=== PATIENT | female | born 2000 | race Caucasian/White ===

== ENCOUNTER 2023-08-03 08:17 | Emergency (ER) | payer BC, SELFPAY ==
[2023-08-03 08:18] VITALS: BP 127/76; PULSE 120; RESP 20; TEMP 36.2; O2SAT 100
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
--- NOTE | 2023-08-03 09:21 | PC.NURSE ---
pt had large BM and reports she feels better and does not want labs or CT. All risks explained to pt and she voices understanding.
[2023-08-03 09:22] VITALS: BP 116/70; PULSE 78; RESP 16; TEMP 36.6; O2SAT 100
== END 2023-08-03 09:30 | disposition left against medical advice (07) ==
LOC: ANHED 09:25
PROVIDERS: Emergency Provider Emergency Medicine
DX: K59.00 Constipation, unspecified (principal)
CPT/HCPCS: 99281

== ENCOUNTER 2024-12-29 08:46 | Outpatient (CLI) | payer BC, SELFPAY ==
--- NOTE | ~2024-12-29 | US_ITS ---
Pelvic ultrasound. Clinical History: Pelvic pain Technique: Realtime transabdominal and transvaginal scanning of the pelvis was performed. Color flow Doppler and Doppler spectral analysis were performed. Findings: The uterus is retroverted.. The endometrial stripe has a thickness of 9 mm. No focal mass is identified. The right ovary measures 4.5 x 2.1 x 2.9 cm. No significant right ovarian or adnexal mass is seen. The left ovary measures 3.1 x 2.0 x 2.1 cm. No significant left ovarian or adnexal mass is seen. There is small amount of free fluid in the pelvis. Impression: Small amount of free fluid, otherwise unremarkable exam. Reviewed, dictated and finalized at location M. Impression: Small amount of free fluid, otherwise unremarkable exam.
--- NOTE | ~2024-12-29 | US_ITS ---
PROCEDURE: US breast RT limited INDICATION: 24-year old female; palpable lump right breast for 1 month. COMPARISON: None TECHNIQUE: Targeted ultrasound of the palpable lump in the inferior right breast was completed. FINDINGS: There is a 1.89 x 1.27 x 0.76 cm irregular shaped hypoechoic mass with internal vascularity at 6:00 l ocation 5 cm from the nipple in the RIGHT breast that correlates to the palpable lump. IMPRESSION: Suspicious 1.9 cm irregular marginated hypoechoic mass at 6:00 location correlates to the palpable perez mp. RECOMMENDATION: Ultrasound-guided core needle biopsy of right breast mass at 6:00 location. The findings and recommendations were discussed with the patient and breast clinic referral was made prior to leaving the department. BI-RADS 4, SUSPICIOUS Reviewed, dictated and finalized at location B. IMPRESSION: Suspicious 1.9 cm irregular marginated hypoechoic mass at 6:00 location correla reynaldo to the palpable lump. RECOMMENDATION: Ultrasound-guided core needle biopsy of right breast mass at 6:00 location. The findings and recommendations were discussed with the patient and breast cli suad referral was made prior to leaving the department. BI-RADS 4, SUSPICIOUS
== END 2024-12-29 08:47 | disposition home or self-care (01) ==
PROVIDERS: PCP Nurse Practitioner Family; Visit Provider Nurse Practitioner Family
DX: R10.2 Pelvic and perineal pain (principal); R92.8 Other abnormal and inconclusive findings on diagnostic imaging of breast
CPT/HCPCS: 76642; 76830; 76856

== ENCOUNTER 2025-01-24 19:52 | Emergency (ER) | payer BC, SELFPAY ==
--- NOTE | ~2025-01-24 | XR_ITS ---
EXAM: XR wrist LT min 3V DATE: 01/24/2025 20:13 HISTORY: pain; radial aspect and thumb base . COMPARISON: None available. FINDINGS: Normal mineralization. No fracture or dislocation. No lytic or blastic lesion. Joint space s are maintained. No erosion or periosteal change. Soft tissues within normal limits. IMPRESSION: No acute osseous finding in the left wrist. Reviewed, dictated and finalized at location K.
--- NOTE | ~2025-01-24 | XR_ITS ---
EXAM: XR ankle LT min 3V DATE: 01/24/2025 20:13 HISTORY: pain medial aspect and posterior . COMPARISON: None available. FINDINGS: Normal mineralization. No fracture. Slight anterior displacement of the talar dome relativ e to the tibial plafond. No lytic or blastic lesion. Joint spaces are maintained. No erosion or perio steal change. Soft tissues within normal limits. IMPRESSION: No fracture nor left ankle. Anterior displacement of the talus relative to the tibial vince fond, may represent artifact from projection, or acute versus chronic mild subluxation. Reviewed, dictated and finalized at location K. IMPRESSION: No fracture nor left ankle. Anterior displacement of the talus rela tive to the tibial plafond, may represent artifact from projection, or acute ve rsus chronic mild subluxation.
[2025-01-24 19:57] VITALS: BP 108/73; PULSE 90; RESP 18; TEMP 36.9; O2SAT 100
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
[2025-01-24] MEDS: HYDROcodone/acetaminophen (*CRX) 5-325 MG TABLET 1 TAB PO (20:14)
[2025-01-24 20:31] VITALS: BP 112/65; PULSE 80; RESP 16; O2SAT 100
[2025-01-24 21:48] VITALS: BP 109/60; PULSE 73; RESP 18; TEMP 37.1; O2SAT 100
== END 2025-01-24 21:26 | disposition home or self-care (01) ==
PROVIDERS: Emergency Provider Student in an Organized Health Care Education/Training Program
DX: M25.532 Pain in left wrist (principal); M25.572 Pain in left ankle and joints of left foot; V18.0XXA Pedal cycle driver injured in noncollision transport accident in nontraffic accident, initial encounter
CPT/HCPCS: 73110; 73610; 99284; A9270

== ENCOUNTER 2025-01-25 07:00 | Outpatient (CLI) | payer BC, SELFPAY ==
--- NOTE | ~2025-01-25 | US_ITS ---
EXAMINATION: US breast BI complete HISTORY: Palpable abnormality within the right breast High resolution limited bilateral breast ultrasound was performed. COMPARISON: 12/29/2024 FINDINGS: ULTRASOUND: Redemonstration of a focus of mixed echogenicity at the 6:00 position of the right breast approximate ly 5 cm from the nipple with faint vascularity for which biopsy is recommended. The remainder of the sonographic evaluation of the bilateral breasts demonstrate benign fibroglandula r elements without a cystic or solid lesion of concern. IMPRESSION: Redemonstration of the palpable abnormality at the 6:00 position of the right breast. BI-RADS category 4, suspicious findings. Biopsy is planned, immediately to follow. Reviewed, dictated and finalized at location A.
--- NOTE | ~2025-01-25 | US_ITS ---
EXAMINATION: US breast biopsy RT w image DATE: 01/25/2025 10:51 INDICATION 24-year-old woman with a palpable abnormality in the right breast presents for ultrasound- guided biopsy. TECHNIQUE: The procedure including the risks, benefits, and alternatives was discussed with the patie nt and her . The patient and her understood the risks and agreed to proceed. The skin overlying the 6:00 position of the right breast was prepped and draped in usual sterile fash ion. Anesthetic was administered with 1% lidocaine subcutaneously. Limited ultrasound examination of the right breast was then again performed. At the 6:00 position of the right breast approximately 5 cm from the nipple is a irregular focus of m ixed echogenicity corresponding to the area of palpable concern, suitable for biopsy. A 10G introducer was placed using ultrasound guidance into the abnormality at the 6:00 position of th e right breast, and the inner needle removed. A 11-gauge biopsy device was then used to obtain 4 biopsy specimens under continuous sonographic guid ance. The biopsy device was then removed, and through the pre-existing introducer a coil marker was p laced. The entry site was cleaned and dressed with Steri-Strips. There were no immediate complications. Secondary to patient's young age, no post biopsy mammogram was performed. IMPRESSION: 1. Technically successful ultrasound-guided vacuum-assisted core biopsy of a palpable abnormality at the 6:00 position, as detailed above. Pathology pending Reviewed, dictated and finalized at location A. IMPRESSION: 1. Technically successful ultrasound-guided vacuum-assisted core biopsy of a pa lpable abnormality at the 6:00 position, as detailed above. Pathology pending
--- NOTE | 2025-01-25 10:49 | S_PTH ---
PATIENT: JENNIFER Partida LOC: [facility] U#:[id number] AGE/SX: 24/F ROOM: RE01/25/[address]: Ny Lee MD : 2000 BED: DIS: 01/25/2025 SPEC #: [id number] RECD: 01/25/25 14:38 STATUS: EMA REQ #: [id number] JOSHUA: 01/25/25 10:[address]: Ny Lee DEPT: [facility] Surgical RECD BY: Madison Hutchison Tissues: A - Breast Biopsy Procedures: Hematoxylin and Eosin Stain Gross and Microscopic Level 4
== END 2025-01-25 07:01 | disposition home or self-care (01) ==
PROVIDERS: Visit Provider Surgery
DX: N60.11 Diffuse cystic mastopathy of right breast (principal)
CPT/HCPCS: 19083; 76641; 88305; A4648

== ENCOUNTER 2025-03-09 09:46 | Outpatient (CLI) | payer BC, SELFPAY ==
--- NOTE | ~2025-03-09 | MR_ITS ---
MR breast BI wo/w con 03/09/2025 11:14 CDT INDICATION: Unspecified lump in right breast. Previous benign right breast biopsy. TECHNIQUE: MRI of the breasts perform using standard protocol pre-and post IV contrast with the follo wing sequences: Axial T2 STIR, axial T1, axial vibrant T1 with fat suppression precontrast and multip hasic postcontrast. 10 cc MultiHance administered intravenously. COMPARISON: Previous breast ultrasounds dated 12/29/2024 and 01/25/2025 FINDINGS: There are no abnormalities on the precontrast sequences. There is minimal background parenc hymal enhancement. In the upper outer quadrant of the right breast at 9:00, posterior third there is an irregular shaped enhancing mass with rapid plateau enhancement, 3.7 cm posterior to the nipple. Th is mass measures 11 x 6 x 7 mm with irregular shape and margins and heterogeneous enhancement. Additi onally, there is a focus of nonmass-like enhancement measuring 5 mm with rapid persistent enhancement , possibly background contrast uptake. This is located at 11:00 in the upper outer quadrant, posterio r third. No evidence of signal abnormalities in the axillary or internal mammary node distributions. LEFT BREAST: No signal abnormalities on precontrast sequences. There is minimal background parenchym al enhancement. No enhancing lesions following contrast administration. No areas of enhancement me eting threshold criteria on CAD analysis. No evidence of signal abnormalities in the axillary or in ternal mammary node distributions. IMPRESSION: 1: Right breast: Irregular shaped 11 mm mass upper outer quadrant of the right breast at approximate ly 9:00, posterior third with rapid plateau enhancement. Additional focus of nonmass-like enhancement present in the upper outer quadrant of the right breast at 11:00, posterior third. Recommend correla tion with diagnostic right mammogram and right breast ultrasound for further characterization. BI-RAD S Category 0.. 2: Left breast: Negative. No evidence of malignancy. BI-RADS category 1. Recommend annual mammogr aphy follow-up. Reviewed, dictated and finalized at location A. IMPRESSION: 1: Right breast: Irregular shaped 11 mm mass upper outer quadrant of the right breast at approximately 9:00, posterior third with rapid plateau enhancement. Additional focus of nonmass-like enhancement present in the upper outer quadran t of the right breast at 11:00, posterior third. Recommend correlation with brennon gnostic right mammogram and right breast ultrasound for further characterizatio n. BI-RADS Category 0.. 2: Left breast: Negative. No evidence of malignancy. BI-RADS category 1. Re commend annual mammography follow-up.
--- OUTSIDE RECORDS SUMMARY | 2025-03-09 10:25 | XMS_ITS | Clinical Summary ---
Author Organization [facility] Address [address] [place] [address] Care Team Providers Care Lastex Operator Name Role Phone Provider, None Primary Care Provider Unavailabl e Social History Tobacco Use Types Packs/Day Years Used Date Smoking Tobacco: Never Assessed Comments Unknown Sex and Gender Information Value Date Recorded Sex Assigned at Not on file Legal Sex Female 1:53 PM CDT Gender Identity Not on file Sexual Orientation Not on file Plan of Treatment Health Maintenance Due Date Last Done Comments Hepatitis C Virus (HCV) Screening 2000 TdaP Immunization 2000 Human Papillomavirus (HPV) Immunization (1 - 3-dose series) 10/17/2014 Hepatitis B Immunization (1 of 3 - 19+ 3-dose series) 10/17/2018 SARS-COV-2 Immunization (2023- season) 2024 Influenza Immunization (#1) 2025 Respiratory Syncytial Virus (RSV) Immunization (Adult) (1 - 1-dose 75+ series) 10/17/2074 Meningococcal Immunization (ACWY) Aged Out No longer eligible based on patient's age to complete this topic Pneumococcal Immunization Combined Aged Out No longer eligible based on patient's age to complete this topic Rotavirus Immunization Aged Out No lo nger eligible based on patient's age to complete this topic Insurance [facility] MEDICAID [place] Care Teams Lastex Operator Relationship Specialty Start Date End Date Provider, None [place] PCP - General 04/13/20
--- OUTSIDE RECORDS SUMMARY | 2025-03-09 10:25 | XMS_ITS | Clinical Summary ---
Author Organization [facility] Address [address] [place] [id number] Care Team Providers Care Shingle Shearing Machine Operator Name Role Phone Yue Valdez NP Primary Care Provider [phone] Allergies No known active allergies Medications medroxyPROGESTERo ne (DEPO-PROVERA) 150 mg/mL injectionIndicati ons:Depo-Provera contraceptive status Inject 1 mL (150 mg total) into the muscle as instructed every 3 (three) months 1 mL 1 Active Additional Information Patient not taking.Reported on 08/09/2022 Active Problems No known active problems Encounters Date Type Department Care Team Description 01/01/2025 Orders Only [facility] Surgery [address] [place] [address] Pippa Santiago PA Mass of right breast, unspecified quadrant (Primary Dx) from Last 3 Months Family History Medical History Relation Name Comments Breast cancer Neg Hx Ovarian cancer Neg Hx Social History Tobacco Use Types Packs/Day Years Used Date Smoking Tobacco: Never Smokeless Tobacco: Never Tobacco Cessation:Counseling Given: Not Answered Personal Safety Answer Date Recorded Getting School Help Needed Not on file 08/31 Comments No Sex and Gender Information Value Date Recorded Sex Assigned at Not on file Legal Sex Female 12:36 PM CDT Gender Identity Female 11/30/2020 1:28 PM CDT Sexual Orientation Straight 11/30/2020 1: 28 PM CDT Obstetrics History Para Term AB IAB SAB Ectopic Multiple Livin g Live Births 0 0 0 0 0 0 0 0 0 0 0 Last Filed Vital Signs Vital Sign Reading Time Taken Comments Blood Pressure 94/58 08/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 Pulse - - Temperature - - Respiratory Rate - - Oxygen Saturation - - Inhaled Oxygen Concentration - - Weight 47.2 kg (104 lb) 08/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 Height 154.9 cm (5' 1) 08/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 Body Mass Index 19.65 08/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 Plan of Treatment Health Maintenance Due Date Last Done Comments Cervical Cancer Screening 1999 Depression Screening 1999 Hepatitis C Screening 1999 DTaP/Tdap/Td Vaccine (1 - Tdap) 10/17/2010 Varicella Vaccines (1 of 2 - 13+ 2-dose series) 10/17/2012 HPV Vaccines (1 - 3-dose series) 10/17/2014 Hepatitis B Screening 10/17/2017 Regular Well Visit/Exam 18-64 01/18/2023, 01/16/2021 Influenza Vaccine (#1) 2025 Pneumococcal vaccine <65 Aged Out No longer eligible based on patient's age to complete this topic Insurance [employer] BLUE ACCESS CHOICE [place] Subscriber Plan / Payer (Ef fective 2022-Present) Name:Geneva Partida Relation to Subscriber:Spouse Name:JOAO PARTIDA Date of :1999 (Home) Address: [address] [place] [address]. [address] [place] [address] Payer ID:[id number] (NAIC) Group ID:[id number] Type: OTHER Address: [address] [place] [address] [address] [place] [address] [email or web address] [place] [place] . [address] [place] [address] [email or web address] [place] [place] Care Teams Shingle Shearing Machine Operator Relationship Specialty Start Date End Date Yue Valdez NP [address] [place] [address] [address] PCP - General Nurse Practitioner 12/31/24
--- OUTSIDE RECORDS SUMMARY | 2025-03-09 10:25 | XMS_ITS | Clinical Summary ---
Author Organization [facility] Address [address] [place] [address] [place] [address] Care Team Providers Care Medical Administrative Technician Name Role Phone Unavailable Primary Care Provider Unavailabl e Allergies No known active allergies Medications loteprednol (LOTEMAX) 0.5 % suspension Instill 1 drop into both eyes three times a day FOR 10 DAYS. SHAKE WELL 5 mL 03/26/2023 5:23 PM CDT 03/25/2023 Active Social History Tobacco Use Types Packs/Day Years Used Date Smoking Tobacco: Never Assessed Comments Unknown Sex and Gender Information Value Date Recorded Sex Assigned at Not on file Legal Sex Female 5:51 PM CDT Gender Identity Not on file Sexual Orientation Not on file Plan of Treatment Health Maintenance Due Date Last Done Comments HPV VACCINES (1 - 3-dose series) 10/17/2014 DTAP/TDAP/TD VACCINES (1 - Tdap) 10/17/2018 HEPATITIS B VACCINES (1 of 3 - 19+ 3-dose series) 09/27 CERVICAL CANCER SCREENING 10/17/2020 HPV/Cotest (21-29) 10/17/2020 PAP SMEAR 10/17/2020 INFLUENZA VACCINE (#1) 2025 Insurance RX [employer] Commercial
== END 2025-03-09 09:47 | disposition home or self-care (01) ==
PROVIDERS: Visit Provider Surgery
DX: N63.11 Unspecified lump in the right breast, upper outer quadrant (principal)
CPT/HCPCS: 77049; A9577; C8908

== ENCOUNTER 2025-06-04 16:53 | Emergency (ER) | payer BC, SELFPAY ==
--- OUTSIDE RECORDS SUMMARY | 2025-06-04 16:55 | XMS_ITS | Clinical Summary ---
Author Organization [facility] Address [address] [place] [id number] Care Team Providers Care Rejector Name Role Phone Yue Valdez NP Primary Care Provider [phone] Allergies No known active allergies Medications medroxyPROGESTERo ne (DEPO-PROVERA) 150 mg/mL injectionIndicati ons:Depo-Provera contraceptive status Inject 1 mL (150 mg total) into the muscle as instructed every 3 (three) months 1 mL 1 Active Additional Information Patient not taking.Reported on 08/09/2022 Active Problems No known active problems Family History Medical History Relation Name Comments [...] Comments Blood Pressure 94/58 08/09/2022 2:23 PM RESEARCH MANAGER Pulse - - Temperature - - Respiratory Rate - - Oxygen Saturation - - Inhaled Oxygen Concentration - - Weight 47.2 kg (104 lb) 08/09/2022 2:23 PM RESEARCH MANAGER Height 154.9 cm (5' 1) 08/09/2022 2:23 PM RESEARCH MANAGER Body Mass Index 19.65 08/09/2022 2:23 PM RESEARCH MANAGER Plan of Treatment Health Maintenance Due Date [...] patient's age to complete this topic Insurance [employer] BLUE ACC[employer] [address] [place] [address] [employer] [address] Care Teams Rejector Relationship Specialty Start Date End Date Yue Valdez, ELECTION ASSISTANT [address] [facility] [address] [place] [id number] PCP - General Nurse Practitioner 12/31/24
--- OUTSIDE RECORDS SUMMARY | 2025-06-04 16:55 | XMS_ITS | Clinical Summary ---
Author Organization [facility] Address [address] [place] [address] [place] [address] Care Team Providers Care Business Support Name Role Phone Unavailable Primary Care Provider [...]
--- OUTSIDE RECORDS SUMMARY | 2025-06-04 16:55 | XMS_ITS | Clinical Summary ---
Author Organization [facility] Address [address] [place] [address] Care Team Providers Care Bar Porter Name Role Phone Provider, None Primary Care Provider Unavailabl e Encounters Date Type Department Care Team Description 05/21/2025 Transcribe Orders [facility] [address] [place] [phone] Kyra Bautista DO Sprain of unspecified ligament of left ankle, initial encounter (Primary Dx) from Last 3 Months Social History Tobacco Use Types Packs/Day Years Used Date Smoking Tobacco: Never Assessed Comments Unknown Sex and Gender Information Value Date Recorded Sex Assigned at Not on file Legal Sex Female 1:53 PM CDT Gender Identity Not on file Sexual Orientation Not on file Plan of Treatment Upcoming Encounters Date Type Department Care Team (Late st Contact Info) Description 06/14/2025 1:45 PM OPERATIONS RESEARCH MANAGER Physical Therapy [facility] [address] [facility] [place] [address] Kyra Bautista DO [address] [place] [address] [address] [place] [address] Dalia Garcia, PT [place] Discharge Disposition: Discharged to home or Selfcare Health Maintenance Due Date Last Done Comments Hepatitis C Virus (HCV) Screening 1999 TdaP Immunization 1999 Human Papillomavirus (HPV) Immunization (1 - 3-dose series) 10/17/2014 Hepatitis B Immunization (1 of 3 - 19+ 3-dose series) 10/17/2018 Influenza Immunization (#1) 2025 SARS-COV-2 Immunization (2024- season) 2025 Respiratory Syncytial Virus (RSV) Immunization (Adult) (1 - 1-dose 75+ series) 10/17/2074 Meningococcal Immunization (ACWY) Aged Out No longer eligible based on patient's age to complete this topic Pneumococcal Immunization Combined Aged Out No longer eligible based on patient's age to complete this topic Rotavirus Immunization Aged Out No lo nger eligible based on patient's age to complete this topic Insurance Care Teams Bar Porter Relationship Specialty Start Date End Date Provider, None [place] PCP - General 04/13/20
--- OUTSIDE RECORDS SUMMARY | 2025-06-04 16:56 | XMS_ITS | Encounter Summary ---
Author Organization [facility] Address [address] [place] [address] Phone Care Team Providers Care Iron Setter Name Role Phone Provider, None Primary Care Provider Unavailabl e Reason for Referral * PT/OT/ST (Routine) - Open Specialty Diagnoses / Procedures Referred By Sandra t Referred To Contact Physical Therapy Diagnoses Sprain of unspecified ligament of left ankle, initial encounter Kyra Bautista DO [address] [facility] [address] [place] [phone] Phone: tel: fax: [facility] [address] [address] Phone: tel: fax: Referral ID Status Reason Start Date Expiration Date Visits Re quested Visits Authorized [id number] Open 05/21/2025 100 100 Scheduling Instructions Encounter Details Date Type Department Care Team (Late st Contact Info) Description 05/21/2025 Transcribe Orders [facility] [address] [place] [address] Kyra Bautista DO [address] [place] [address] [address] [place] [id number] Sprain of unspecified ligament of left ankle, initial encounter (Primary Dx) Social History Tobacco Use Types Packs/Day Years Used Date Smoking Tobacco: Never Assessed Comments Unknown Sex and Gender Information Value Date Recorded Sex Assigned at Not on file Legal Sex Female 1:53 PM CDT Gender Identity Not on file Sexual Orientation Not on file documented as of this encounter Plan of Treatment Upcoming Encounters Date Type Department Care Team (Late st Contact Info) Description 06/14/2025 1:45 PM LEG ASSEMBLER Physical [facility] [address] [facility], [address] [place] [phone] Kyra Bautista DO [address] [facility] [address] [place] [address] Dalia Garcia, PT [place] Discharge Disposition: Discharged to home or Selfcare Scheduled Referrals Name Type Priority Associated Diagnoses Orde r Schedule PHYSICAL THERAPY REFERRAL Outpatient Referral Routine Sprain of unspecified ligament of left ankle, initial encounter Expected: 05/21/2025, Expires: 05/21/2026 documented as of this encounter Visit Diagnoses Diagnosis Sprain of unspecified ligament of left ankle, initial encounter- Primary documented in this encounter Care Teams Iron Setter Relationship Specialty Start Date End Date Provider, Oswaldo WILD PCP - General 04/13/20 documented as of this encounter
[2025-06-04 17:06] VITALS: BP 119/79; PULSE 110; RESP 16; TEMP 37.1; O2SAT 98
[2025-06-04 21:05] VITALS: BP 122/76; PULSE 103; RESP 17; TEMP 37.1; O2SAT 100
--- NOTE | 2025-06-04 21:40 | PC.NURSE ---
pt came up to nurses station and stated We are going to head out.
== END 2025-06-04 21:39 | disposition left against medical advice (07) ==
LOC: ANHED 21:58
DX: N89.8 Other specified noninflammatory disorders of vagina (principal)
CPT/HCPCS: 99199

== ENCOUNTER 2025-06-22 10:23 | Outpatient (CLI) | payer BC, SELFPAY ==
--- NOTE | ~2025-06-22 | MM_ITS ---
EXAMINATION: [facility] BI w [facility] HISTORY: Second look after MR TECHNIQUE: Craniocaudal and mediolateral oblique 3-D tomosynthesis images were obtained and synthetic 2-D images were generated. CAD analysis was submitted and interpreted. Grayscale sonography over the area(s) of interest with color Doppler if there is a finding. COMPARISON: MR from March 09. Other studies dating back to December 29. BREAST PARENCHYMAL COMPOSITION: The breast tissue is extremely dense, which lowers the sensitivity of mammography. MAMMOGRAM FINDINGS: There is a biopsy marker on the right. No suspicious masses are seen. There are no suspicious calcifications. No unexplained architectural distortion is seen. There are no skin or nipple abnormalities identified. There is no adenopathy seen on the images submitted. ULTRASOUND FINDINGS: Sonography through the areas of MR abnormality demonstrates no cystic or solid masses. No cystic or solid masses are seen in the area(s) of concern. IMPRESSION: No mammographic or sonographic evidence to suggest malignancy is seen. The MR appearance does not appear particularly suspicious. Six-month follow-up MR is recommended, which will be due in August. The original MR was done in February. BI-RADS Code: 3 - Probably benign - short-term follow-up is recommended. Reviewed, dictated and finalized at location B. SPRING FABRICATION SUPERVISOR IMPRESSION: No mammographic or sonographic evidence to suggest malignancy is seen. The MR a ppearance does not appear particularly suspicious. Six-month follow-up MR is re commended, which will be due in August. The original MR was done in February. BI-RADS Code: 3 - Probably benign - short-term follow-up is recommended.
== END 2025-06-22 10:24 | disposition home or self-care (01) ==
LOC: ANHFOHIMG 10:23
PROVIDERS: Visit Provider Surgery
DX: N63.15 Unspecified lump in the right breast, overlapping quadrants (principal); N63.11 Unspecified lump in the right breast, upper outer quadrant; R92.8 Other abnormal and inconclusive findings on diagnostic imaging of breast
CPT/HCPCS: 76642; 77062; 77066; G0279